=== PATIENT | male | born 2005 | race Caucasian/White ===

== ENCOUNTER 2024-01-10 15:37 | Emergency (ER) | payer OTHER, SELFPAY ==
[~2024-01-10] VITALS: Ht 180.3 cm; Wt 128.2 kg
[2024-01-10 15:57] VITALS: BP 143/83; TEMP 100; O2SAT 99
[2024-01-10] MEDS ORDERED: HOME MED LIST COMPLETE! XX SCH (17:50)
== END 2024-01-10 18:55 | disposition home or self-care (01) ==
LOC: M ED 15:37
DX: F43.0 Acute stress reaction (principal); F84.0 Autistic disorder; F91.3 Oppositional defiant disorder